=== PATIENT | male | born 1965 | race Caucasian/White ===

== ENCOUNTER 2022-12-09 03:24 | Emergency (ER) | payer OTHER, SELFPAY ==
[2022-12-09] VITALS (10 sets, daily range): BP systolic 148–199; BP diastolic 87–111; PULSE 73–83; RESP 12–21; O2SAT 92–98; BMI 33.7
--- NOTE | 2022-12-09 03:47 | ED.DIZZY1 ---
HPI - Dizziness General Chief Complaint: Nausea/Vomiting/Diarrhea Stated Complaint: DIZZINESS, VOMITING, HEADACHE Time Seen by Provider: 12/09/22 03:43 Source: patient Mode of arrival: ambulance History of Present Illness HPI Narrative: past history of vertigo but last episode over a year ago. Tonight episode of room spinning and nausea/vomiting. Sl. Headache. No chest pain. MD elicited complaint: Reports dizziness Related Data Home Medications Medication Instructions Recorded Confirmed amlodipine 5 mg tablet 5 mg PO QDAY 12/09/22 12/09/22 atorvastatin 40 mg tablet 40 mg PO QDAY 12/09/22 12/09/22 metoprolol succinate 25 mg 25 mg PO Q24H 12/09/22 12/09/22 tablet,extended release 24 hr pantoprazole 40 mg tablet,delayed 40 mg PO Q24H 12/09/22 12/09/22 release Allergies Allergy/AdvReac Type Severity Reaction Status Date / Time amoxicillin Allergy Verified 12/09/22 03:39 Review of Systems ROS Status of ROS 10 or more systems reviewed and unremarkable except as noted in history and below PFSH PFSH Social History Smoking status: Never smoker Exam Constitutional Vital Signs - 24 hr 12/09/22 03:31 12/09/22 03:49 12/09/22 03:35 Pulse Rate 78 80 Pulse Rate [Monitor] 78 Respiratory Rate 18 12 Blood Pressure 199/110 H Blood Pressure [Left Arm] 183/98 H Pulse Oximetry 97 96 Oxygen Delivery Method Room Air 12/09/22 03:38 12/09/22 03:45 12/09/22 04:00 Pulse Rate 74 73 78 Pulse Rate [Monitor] Respiratory Rate 18 16 16 Blood Pressure 183/98 H 162/94 H 148/111 H Blood Pressure [Left Arm] Pulse Oximetry 95 92 L 92 L Oxygen Delivery Method 12/09/22 04:15 12/09/22 04:30 12/09/22 04:45 Pulse Rate 75 76 78 Pulse Rate [Monitor] Respiratory Rate 15 21 14 Blood Pressure 157/93 H 161/88 H 150/87 H Blood Pressure [Left Arm] Pulse Oximetry 94 L 94 L Oxygen Delivery Method 12/09/22 04:45 12/09/22 05:00 Pulse Rate 83 75 Pulse Rate [Monitor] Respiratory Rate 16 15 Blood Pressure 150/87 H 159/90 H Blood Pressure [Left Arm] Pulse Oximetry 98 Oxygen Delivery Method Common normals: no apparent distress and oriented x3 HENMT Common normals: normocephalic and head/scalp atraumatic Eye Common normals: PERRL, EOMs intact bilaterally and conjunctivae normal General eye: normal appearance of both eyes Respiratory Common normals: normal respiratory effort, no retractions, no use of accessory muscles and clear to auscultation bilaterally Cardio Common normals: regular rate, regular rhythm, S1 normal heart sound and S2 normal heart sound GI Other: distended nontender Extremity Common normals: normal to inspection, full ROM and normal capillary refill Neuro Common normals: oriented x3, CN's II-XII intact bilaterally, moves all extremities and no focal motor deficits Psych Appearance: grossly normal Course Vital Signs Vital signs: Vital Signs Pulse Rate 78 12/09/22 03:31 Respiratory Rate 18 12/09/22 03:31 Blood Pressure 183/98 H 12/09/22 03:31 Pulse Oximetry 97 12/09/22 03:31 Oxygen Delivery Method Room Air 12/09/22 03:31 Pulse Rate 75 12/09/22 05:00 Respiratory Rate 15 12/09/22 05:00 Blood Pressure 159/90 H 12/09/22 05:00 Pulse Oximetry 98 12/09/22 05:00 Oxygen Delivery Method Room Air 12/09/22 03:31 MDM - Dizziness MDM Narrative Medical decision making narrative: patient presents complaining of vertiginous symptoms. Room spinning and nausea/vomiting. Episode of vertigo about one year ago. responded to cocktail of antivert, solumedrol and ativan and is now feeling better. Able to ambulate without dizziness. CBC WNL. BMP with mild elevation of glucose. Patient discharged home with prescriptions for Antivert and Prednisone and is advised to follow up with his doctor for a recheck Lab Data Labs: Lab Results 12/09/22 Range/Units 03:30 WBC 10.1 (4.0-11.0) 10^3/uL RBC 4.88 (4.70-6.10) 10^6/uL Hgb 14.0 (14.0-18.0) g/dL Hct 42.4 (42.0-54.0) % MCV 86.9 (80.0-94.0) fL MCH 28.7 (25.9-34.0) pg MCHC 33.0 (29.9-35.2) g/dL RDW 13.4 (11.0-15.0) % Plt Count 263 (150-450) 10^3/uL MPV 10.5 (9.5-13.5) fL Neut % (Auto) 63.3 (43.0-75.0) % Lymph % (Auto) 24.9 (20.5-60.0) % [place] % (Auto) 7.5 (1.7-12.0) % Eos % (Auto) 3.2 (0.9-7.0) % Baso % (Auto) 0.6 (0.2-2.0) % Neut # (Auto) 6.4 (1.4-6.5) 10^3/uL Lymph # (Auto) 2.5 (1.2-3.8) 10^3/uL [place] # (Auto) 0.8 (0.3-0.8) 10^3/uL Eos # (Auto) 0.3 (0.0-0.7) 10^3/uL Baso # (Auto) 0.1 (0.0-0.1) 10^3/uL Abs Immat Gran (auto) 0.05 H (0.00-0.03) 10^3/uL Imm/Tot Granulo (auto) 0.5 (0.0-0.5) % Sodium 137 (136-145) mmol/L Potassium 3.5 (3.5-5.1) mmol/L Chloride 100 (98-107) mmol/L Carbon Dioxide 26.3 (21.0-32.0) mmol/L Anion Gap 14.2 BUN 19.0 H (7.0-18.0) mg/dL Creatinine 1.23 (0.70-1.30) mg/dL Est GFR ( Amer) >60 (>=60) Est GFR (Non-Af Amer) >60 (>=60) BUN/Creatinine Ratio 15.4 Glucose 145 H (74-106) mg/dL Calcium 9.1 (8.5-10.1) mg/dL Total Bilirubin 0.3 (0.2-1.0) mg/dL AST 17 (15-37) U/L ALT 47 (16-63) U/L Alkaline Phosphatase 77 (46-116) U/L Total Protein 7.4 (6.4-8.2) g/dL Albumin 3.9 (3.4-5.0) g/dL Globulin 3.5 g/dL Albumin/Globulin Ratio 1.1 Discharge Plan Discharge Chief Complaint: Nausea/Vomiting/Diarrhea Clinical Impression: Vertigo Patient Disposition: Home, Self-Care Prescriptions / Home Meds: No Action amlodipine 5 mg tablet 5 mg PO QDAY atorvastatin 40 mg tablet 40 mg PO QDAY metoprolol succinate 25 mg tablet extended release 24 hr 25 mg PO Q24H pantoprazole 40 mg tablet,delayed release (DR/EC) 40 mg PO Q24H Instructions: Vertigo (ED) Additional Instructions: follow up with your doctor in the next couple of days for recheck. Return if symptoms not controlled Stand Alone Forms: Portal Instructions Referrals: Physician,Non-Staff, MD [Primary Care Provider] - 1 week
--- NOTE | 2022-12-09 03:57 | ECG_ITS ---
[facility] Test Date: 2022-12-09 Pat Name: Suresh Browning Department: Room: - Gender: Male [employer]: : 1965 Requested By: Order Number: [id number] Reading MD: MICHAEL CAMERON Measurements Intervals [place] Rate: 81 P: 56 CO: 140 QRS: 79 QRSD: 104 T: 49 QT: 406 QTc: 443 Interpretive Statements 1100 Sinus rhythm 9110 normal ECG No previous ECG available for comparison Electronically Signed On 12-09-2022 6:55:08 EDT by MICHAEL CAMERON
[2022-12-09 04:00] LABS: Basophils Absolute Auto 0.1 10^3/uL (0.0-0.1); Basophils Percent Auto 0.6 % (0.2-2.0); Eosinophils Absolute Auto 0.3 10^3/uL (0.0-0.7); Eosinophils Percent Auto 3.2 % (0.9-7.0); Hematocrit 42.4 % (42.0-54.0); Immature Granulocytes Abs Auto 0.05 10^3/uL (0.00-0.03); Immature Granulocytes Pct Auto 0.5 % (0.0-0.5); Lymphocytes Absolute Auto 2.5 10^3/uL (1.2-3.8); Lymphocytes Percent Auto 24.9 % (20.5-60.0); Mean Corpuscular Hemoglobin 28.7 pg (25.9-34.0); Mean Corpuscular Volume 86.9 fL (80.0-94.0); Mean Platelet Volume 10.5 fL (9.5-13.5); Monocytes Absolute Auto 0.8 10^3/uL (0.3-0.8); Monocytes Percent Auto 7.5 % (1.7-12.0); Neutrophils Absolute Auto 6.4 10^3/uL (1.4-6.5); Neutrophils Percent Auto 63.3 % (43.0-75.0); Platelet Count 263 10^3/uL (150-450); Red Blood Count 4.88 10^6/uL (4.70-6.10); Red Cell Distribution Width 13.4 % (11.0-15.0); White Blood Count 10.1 10^3/uL (4.0-11.0)
[2022-12-09] MEDS: MECLIZINE HCL 12.5 MG TABLET 25 MG PO (04:06)
[2022-12-09] MEDS: LORAZEPAM 0.5 MG TABLET PO (04:06)
[2022-12-09] MEDS: ONDANSETRON PF 4 MG/2 ML VIAL (04:06)
[2022-12-09] MEDS: 0.9 % SODIUM CHLORIDE 1,000 ML 999 ML IV (04:06)
[2022-12-09 04:11] LABS: Alanine Aminotransferase 47 U/L (16-63); Albumin Globulin Ratio 1.1; Albumin Level 3.9 g/dL (3.4-5.0); Alkaline Phosphatase 77 U/L (46-116); Anion Gap 14.2; Aspartate Amino Transferase 17 U/L (15-37); BUN Creatinine Ratio 15.4; Bilirubin Total 0.3 mg/dL (0.2-1.0); Calcium 9.1 mg/dL (8.5-10.1); Carbon Dioxide 26.3 mmol/L (21.0-32.0); Chloride 100 mmol/L (98-107); Estimated GFR (African America >60 (>=60); Estimated GFR (Non-African Ame >60 (>=60); Globulin 3.5 g/dL; Glucose 145 mg/dL (74-106); Potassium 3.5 mmol/L (3.5-5.1); Sodium 137 mmol/L (136-145); Total Protein 7.4 g/dL (6.4-8.2)
== END 2022-12-09 06:04 | disposition home or self-care (01) ==
PROVIDERS: Emergency Provider Internal Medicine
DX: R42 Dizziness and giddiness (principal); Z79.899 Other long term (current) drug therapy
CPT/HCPCS: 36415; 80053; 85025; 93005; 99284